=== PATIENT | female | born 1950 | race African-American/Black ===

== ENCOUNTER 2019-09-16 20:45 | Emergency (ER) | payer MEDICARE ==
[~2019-09-16] VITALS: Ht 165.1 cm; Wt 104.3 kg
[2019-09-16] MEDS ORDERED: Ketorolac 60mg Inj IM ONE (21:00)
[2019-09-16 21:05] VITALS: BP 109/60
--- NOTE | 2019-09-16 21:05 | NUR ---
ED Nurse Note: pt walked in c/o pain on left buttock radiating to left leg and lower back, pt reports she has hx sciatica and she just moved from [place] and wasn't able to refill prescription of percocet, reports she needs percocet for pain. pt on wheelchair, daughter at son at the bedside, vss, resp even and unlabored on RA, will cont monitor.
[2019-09-16] MEDS ORDERED: NORCO 5-325 TA1 EACH ORAL (21:13)
[2019-09-16 21:30] VITALS: BP 115/60
--- NOTE | 2019-09-16 21:30 | NUR ---
ED Nurse Note: pt cleared to be d/c per ERMD, pt discharge and aftercare instruction provided w/ prescription, pt education done via discussion and handout, pt advised to follow up with pcp or return to ed if changes in condition, pt verbalized understanding, pt accompanied by daughter and son and left w/ all belongings via wheelchair.
--- NOTE | 2019-09-17 01:03 | Emergency Room Report ---
History of Present Illness General Chief Complaint: Pain Source: Patient Present Illness HPI Patient presents with complaints of left hip pain and what she calls sciatic pain patient reports that prior to Coming here from [place] she had visited the hospital was diagnosed with sciatic discomfort However upon arriving was not able to fill her prescription pain medication Denies any recent fall or trauma denies any saddle paresthesia denies any abdominal pain pain is localized to the left lower back area with radiation to the left buttock Allergies: Coded Allergies: CARISOPRODOL (Verified Allergy, Unknown, 09/16/19) FENTANYL (Verified Allergy, Unknown, 09/16/19) Patient History Past Medical History: see triage record Reviewed Nursing Documentation: PMH: Agreed; PSxH: Agreed Nursing Documentation-PMH Past Medical History: No History, Except For Hx Cardiac Problems: Yes - History of [place] with bypass in 2001 Hx Hypertension: Yes Hx Pacemaker: Yes Hx COPD: Yes Hx Diabetes: Yes Hx Cancer: Yes - History of breast CA and left mastectomy Review of Systems All Other Systems: negative except mentioned in HPI Physical Exam Vital Signs Date Time Temp Pulse Resp B/P (MAP) Pulse Ox O2 Delivery O2 Flow Rate FiO2 09/16/19 20:54 98.2 70 18 109/60 (76) 91 Room Air Sp02 EP Interpretation: reviewed, normal General Appearance: no apparent distress Head: normocephalic, atraumatic Eyes: bilateral eye PERRL, bilateral eye EOMI ENT: hearing grossly normal, EOM grossly intact Neck: supple Respiratory: lungs clear, no respiratory distress, no retraction Cardiovascular #1: regular rate, rhythm Gastrointestinal: non tender, soft Musculoskeletal: other - Tender on palpation of the left posterior superior iliac crest otherwise no obvious focal deficit sensory intactNontender Neurologic: alert, oriented x3 Skin: no rash Lymphatic: no adenopathy Medical Decision Making Diagnostic Impression: Primary Impression: sciatica ER Course Patient's history clinical exam and presentation is consistent with likely sciatic discomfort Other neurological, neurosurgical infectious emergency is also entertained patient does not appear to have findings consistent with that At this time will have initial conservative outpatient trial Last Vital Signs Date Time Temp Pulse Resp B/P (MAP) Pulse Ox O2 Delivery O2 Flow Rate FiO2 09/16/19 21:30 98.2 09/16/19 21:30 72 18 115/60 96 Room Air Status: improved Disposition: HOME, SELF-CARE Condition: Improved Scripts Hydrocodone Bit/Acetaminophen 5-325* (NORCO 5-325*) 1 Each Tablet 1 TAB ORAL Q12HR PRN for For Pain, #10 TAB 0 Refills Prov: Marino Villarreal DO 09/16/19 Referrals: NOT CHOSEN IPA/MD,REFERRING (PCP) Patient Instructions: Sciatica, [id number] Additional Instructions: Patient is provided with the discharge instructions notified to follow up with primary doctor in the next 2-3 days otherwise return to the er with any worsening symptoms. Please note that this report is being documented using [employer] technology. This can lead to erroneous entry secondary to incorrect interpretation by the dictating instrument. Marino Villarreal DO Sep 17, 2019 01:03
== END 2019-09-16 21:30 | disposition home or self-care (01) ==
LOC: EMR 21:05
DX: M54.30 Sciatica, unspecified side (principal); Z88.8 Allergy status to other drugs, medicaments and biological substances; I10 Essential (primary) hypertension; I25.2 Old myocardial infarction; Z95.0 Presence of cardiac pacemaker; J44.9 Chronic obstructive pulmonary disease, unspecified; E11.9 Type 2 diabetes mellitus without complications; Z85.3 Personal history of malignant neoplasm of breast; Z90.12 Acquired absence of left breast and nipple
CPT/HCPCS: 96372; 99283

== ENCOUNTER 2019-09-29 07:17 | Emergency (ER) | payer MEDICARE ==
[~2019-09-29] VITALS: Ht 162.6 cm; Wt 99.8 kg
[~2019-09-29 07:17] MED LIST: NORCO 5-325 TA1 EACH ORAL
[2019-09-29 07:33] VITALS: BP 147/77
--- NOTE | 2019-09-29 07:33 | NUR ---
ED Nurse Note: PT WAS WHEELED INTO THE ED WITH SON KENNETH. PT STATES SHE HAS LOWER LEFT BACK PAIN RADIATING TO THE RIGHT BUTTOCKS. PER PT, "MY PRIMARY DOCTOR IS NOT OPEN TODAY AND I JUST NEED A SHOT AND MAYBE A LIDOCAINE PATCH FOR THE PAIN". PT DENIES TRAUMA TO AREA. AREA CLEAN DRY AND INTACT.
[2019-09-29] MEDS ORDERED: LIDODERM700 M1 TOPIC (07:50)
[2019-09-29] MEDS ORDERED: VALIUM5 MG ORAL (07:50)
--- NOTE | 2019-09-29 07:55 | Emergency Room Report ---
History of Present Illness General Chief Complaint: Back Pain-No Injury Source: Patient, Medical Record Present Illness HPI 69-year-old female with new lesions on lower back on left, pending biopsy on Tuesday morning with surgeon. Reporting acute on chronic pain, more severe pain over the last 1 to 2 days as she is unable to take her ibuprofen. She also ran out of her Lidoderm patch. Patient is unable to take anti-inflammatories pending biopsy. She took 1 Percocet for pain control prior to arrival which did not help her symptoms. Her pain is in her left lower back radiating down her entire leg. Allergies: Coded Allergies: CARISOPRODOL (Verified Allergy, Unknown, 09/16/19) FENTANYL (Verified Allergy, Unknown, 09/16/19) Patient History Last Menstrual Period: N/A Nursing Documentation-[facility] Hx Cardiac Problems: Yes - History of [place] with bypass in 2001 Hx Hypertension: Yes Hx Pacemaker: Yes Hx COPD: Yes Hx Diabetes: Yes Hx Cancer: Yes - History of breast CA and left mastectomy Review of Systems Constitutional: Denies: chills, fever Respiratory: Denies: cough, shortness of breath Cardiovascular: Denies: chest pain, palpitations Gastrointestinal: Denies: diarrhea, vomiting Genitourinary: Denies: hematuria, pain Musculoskeletal: Reports: back pain; Denies: joint swelling Skin: Denies: rash, lesions Neurological: Denies: headache, dizziness Physical Exam Vital Signs Date Time Temp Pulse Resp B/P (MAP) Pulse Ox O2 Delivery O2 Flow Rate FiO2 09/29/19 07:24 98.1 70 17 147/77 (100) 93 Room Air Sp02 EP Interpretation: reviewed General Appearance: well appearing, no apparent distress, non-toxic Head: normocephalic, atraumatic Eyes: bilateral eye normal inspection ENT: hearing grossly normal, EOM grossly intact, moist mucus membranes Neck: supple Respiratory: lungs clear, normal breath sounds, no respiratory distress, speaking full sentences Cardiovascular #1: regular rate, rhythm, normal capillary refill Cardiovascular #2: 2+ radial (R), 2+ radial (L) Gastrointestinal: soft, non-distended Rectal: deferred Musculoskeletal: moves extm spontaneously, no lower extremity edema, tender - Left lateral lumbar sacral extending into buttocks, severe tenderness, other - Moving lower extremities spontaneously. Neurologic: grossly normal, other - Normal sensation in bilateral lower extremities Psychiatric: mood/affect normal Skin: warm/dry, normal turgor Medical Decision Making Diagnostic Impression: Primary Impression: Back pain ER Course Acute on chronic back pain. Neurovascularly intact. Unable to control pain at home as she is unable to take anti-inflammatories. Will give pain medication so patient can go to her biopsy in 2 days. Patient agreeable with plan and has close follow-up. Given warning signs and when to return. Last Vital Signs Date Time Temp Pulse Resp B/P (MAP) Pulse Ox O2 Delivery O2 Flow Rate FiO2 09/29/19 08:00 98.2 76 16 135/77 96 Room Air Status: improved Disposition: HOME, SELF-CARE Condition: Stable Scripts Diazepam* (VALIUM*) 5 Mg Tablet 5 MG ORAL BEDTIME PRN for For Pain, #3 TAB 0 Refills Prov: Pipo Priest M.D. 09/29/19 Lidocaine Patch* (Lidoderm Patch*) 1 Each Adh..patch 1 PATCH TOPIC DAILY, #7 PATCH 0 Refills Patch(es) may remain in place for up to 12 hours in any 24-hour period. Prov: Pipo Priest M.D. 09/29/19 Patient Instructions: Back Pain, Adult Additional Instructions: Follow-up with your surgeon as scheduled for biopsy on Tuesday. Pipo Priest M.D. Sep 29, 2019 07:54
[2019-09-29 08:00] VITALS: BP 135/77
--- NOTE | 2019-09-29 08:00 | NUR ---
ED Nurse Note: PT WAS DC PER ERMD ORDER, PT WAS GIVEN DC AND PRESCRITION EDUCATION. PT VERBALZIED UNDERSTANDING. PT WAS WHEELED TO VEHICLE. ID BAND REMOVED.
== END 2019-09-29 08:00 | disposition home or self-care (01) ==
LOC: EMR 07:45
DX: M54.9 Dorsalgia, unspecified (principal); G89.29 Other chronic pain; Z88.8 Allergy status to other drugs, medicaments and biological substances; I10 Essential (primary) hypertension; Z95.5 Presence of coronary angioplasty implant and graft; J44.9 Chronic obstructive pulmonary disease, unspecified; E11.9 Type 2 diabetes mellitus without complications; Z85.3 Personal history of malignant neoplasm of breast; Z90.12 Acquired absence of left breast and nipple; Z95.1 Presence of aortocoronary bypass graft; I25.2 Old myocardial infarction
CPT/HCPCS: 99282